=== PATIENT | female | born 1995 | race Caucasian/White ===

== ENCOUNTER 2017-07-06 16:47 | Emergency (ER) | payer OTHER ==
[~2017-07-06] VITALS: Ht 162.6 cm; Wt 52.5 kg
[~2017-07-06 16:47] MED LIST: ALLERGY CONGES1 EACH PO
[2017-07-06] MEDS ORDERED: MOTRIN600 MG PO (19:31)
[2017-07-06 20:07] VITALS: BP 107/75
== END 2017-07-06 20:10 | disposition home or self-care (01) ==
LOC: EME 16:47
DX: S16.1XXA Strain of muscle, fascia and tendon at neck level, initial encounter (principal); V43.62XA Car passenger injured in collision with other type car in traffic accident, initial encounter; Y92.410 Unspecified street and highway as the place of occurrence of the external cause
CPT/HCPCS: 99281; 99284